=== PATIENT | female | born 1930 | race Caucasian/White ===

== ENCOUNTER 2018-10-02 21:48 | Emergency (ER) | payer MEDICARE ==
--- NOTE | 2018-10-02 22:55 | CRLCR ---
INDICATION: Brief stabbing substernal pain TECHNIQUE: Chest 2 views. COMPARISON: None FINDINGS: Cardiovascular and mediastinum: Borderline cardiomegaly. Normal pulmonary vasculature. Mediastinum is within normal limits. Lungs and pleural spaces: Lungs are clear. No sign of infiltrate or mass. No sign of pleural effusion. No pneumothorax. Bones and soft tissues: No significant findings. IMPRESSION: No sign of acute disease. Dictated by Shilpa Bone MD @ Oct 02 2018 10:51PM Signed by Dr. Shilpa Bone @ Oct 02 2018 10:53PM
--- NOTE | 2018-10-02 23:59 | EDM.PDOC ---
ED HPI GENERAL MEDICAL PROBLEM - General Chief Complaint: Chest Pain Stated Complaint: CHEST PAINS Time Seen by Provider: 10/02/18 22:25 Source of Information: Reports: Patient History Limitations: Reports: No Limitations - History of Present Illness INITIAL COMMENTS - FREE TEXT/NARRATIVE: This lady complains of some substernal chest pain. She called it like a pinprick. It comes on instantaneously and only last about a half second. She's been having them since 7 PM tonight. She denies heart disease. She does have hypertension and she has chronic shortness of breath. Tonight she took her blood pressure medicines and 2 aspirin tablets. The pains were more dull now Middle Chest Pain Score (Numeric/FACES): 2 - Related Data Allergies Allergy/AdvReac Type Severity Reaction Status Date / Time ciprofloxacin [From Cipro] Allergy Other Verified 10/02/18 22:06 Home Meds: Home Meds Losartan [Cozaar] 50 mg PO DAILY 10/02/18 [History] Metoprolol Tartrate 50 mg PO BID 10/02/18 [History] Salmeterol Xinafoate [Serevent Diskus] 1 puff INH Q12H 10/02/18 [History] amLODIPine [Norvasc] 10 mg PO DAILY 10/02/18 [History] Past Medical History HEENT History: Reports: Cataract, Hard of Hearing, Impaired Vision, Macular Degeneration Cardiovascular History: Reports: High Cholesterol, Hypertension Respiratory History: Reports: Asthma Gastrointestinal History: Reports: GERD [employer] History: Reports: Oncologic (Cancer) History: Reports: Basal Cell Carcinoma - Past Surgical History HEENT Surgical History: Reports: Cataract Surgery Female Surgical History: Reports: Hysterectomy Social & Family History - Family History Family Medical History: Unobtainable - Tobacco Use Smoking Status *Q: Never Smoker - Caffeine Use Caffeine Use: Reports: Coffee Caffeine Use Comment: daily coffee - Recreational Drug Use Recreational Drug Use: No ED ROS GENERAL - Review of Systems Review Of Systems: ROS reveals no pertinent complaints other than HPI. ED EXAM, GENERAL - Physical Exam Exam: See Below Exam Limited By: No Limitations General Appearance: Alert, WD/WN, No Apparent Distress, Other (This lady is happy and smiling looks like a pretty healthy lady for her age) Eye Exam: Bilateral Eye: Normal Inspection Throat/Mouth: Normal Inspection Neck: Normal Inspection Respiratory/Chest: Lungs Clear, Chest Non-Tender Cardiovascular: Regular Rate, Rhythm, No Murmur GI/Abdominal: Non-Tender Extremities: Normal Inspection Neurological: Alert, Oriented, CN II-XII Intact, Normal Cognition, No Motor/ Sensory Deficits Psychiatric: Normal Affect Skin Exam: Warm, Dry Course - Vital Signs Last Recorded V/S: Last Vital Signs Temp 36.6 C 10/02/18 22:10 Pulse 63 10/02/18 22:34 Resp 18 10/02/18 23:11 BP 177/76 H 10/02/18 23:11 Pulse Ox 96 10/02/18 23:11 - Orders/Labs/Meds Orders: Active Orders 24 hr Category Date Time Status EKG Documentation Completion [RC] ASDIRECTED Care 10/02/18 22:26 Active EKG 12 Lead [EK] Urgent Ther 10/02/18 22:25 Ordered Labs: Laboratory Tests 10/02/18 10/02/18 Range/Units 22:25 22:25 WBC 9.1 (4.5-11.0) K/uL RBC 4.41 (3.30-5.50) M/uL Hgb 11.7 L (12.0-15.0) g/dL Hct 36.1 (36.0-48.0) % MCV 82 (80-98) fL MCH 27 (27-31) pg MCHC 32 (32-36) % Plt Count 269 (150-400) K/uL Neut % (Auto) 59 (36-66) % Lymph % (Auto) 25 (24-44) % Bowie % (Auto) 10 H (2-6) % Eos % (Auto) 5 H (2-4) % Baso % (Auto) 0 (0-1) % Sodium 136 L (140-148) mmol/L Potassium 4.0 (3.6-5.2) mmol/L Chloride 100 (100-108) mmol/L Carbon Dioxide 31 (21-32) mmol/L Anion Gap 9.0 (5.0-14.0) mmol/L BUN 25 H (7-18) mg/dL Creatinine 1.2 H (0.6-1.0) mg/dL Est Cr Clr Drug Dosing 24.45 mL/min Estimated GFR (MDRD) 42 L (>60) Glucose 98 (74-106) mg/dL Calcium 9.1 (8.5-10.1) mg/dL Total Bilirubin 0.3 (0.2-1.0) mg/dL AST 15 (15-37) U/L ALT 14 (12-78) U/L Alkaline Phosphatase 81 (46-116) U/L Troponin I < 0.017 (0.000-0.056) ng/mL Total Protein 6.8 (6.4-8.2) g/dL Albumin 3.2 L (3.4-5.0) g/dL Globulin 3.6 H (2.3-3.5) g/dL Albumin/Globulin Ratio 0.9 L (1.2-2.2) - Radiology Interpretation Free Text/Narrative:: Chest x-ray showed no abnormalities - Re-Assessments/Exams Free Text/Narrative Re-Assessment/Exam: 10/02/18 23:56 EKG shows normal sinus rhythm at 57 bpm normal QRS normal ST and T waves Departure - Departure Time of Disposition: 23:57 Disposition: Home, Self-Care 01 Condition: Fair Clinical Impression: Chest pain, non-cardiac Referrals: PCP,None [Primary Care Provider] - Additional Instructions: The kind of pain you are describing is from some nerve irritation. This gives you kind of pains that come on instantaneously. This is not your heart and is nothing to worry about. If needed just tried taking some Tylenol. - My Orders Last 24 Hours: My Active Orders 10/02/18 22:25 EKG 12 Lead [EK] Urgent 10/02/18 22:26 EKG Documentation Completion [RC] ASDIRECTED - Assessment/Plan Last 24 Hours: My Active Orders 10/02/18 22:25 EKG 12 Lead [EK] Urgent 10/02/18 22:26 EKG Documentation Completion [RC] ASDIRECTED
== END 2018-10-03 00:04 | disposition home or self-care (01) ==
LOC: JP.ED 21:48
DX: R07.89 Other chest pain (principal); E78.00 Pure hypercholesterolemia, unspecified; J45.909 Unspecified asthma, uncomplicated; Z88.1 Allergy status to other antibiotic agents; Z79.899 Other long term (current) drug therapy; Z85.828 Personal history of other malignant neoplasm of skin
CPT/HCPCS: 36415; 71046; 80053; 84484; 85025; 93005; 93010; 99285-25